=== PATIENT | male | born 1970 | race Caucasian/White ===

== ENCOUNTER 2017-10-14 10:33 | Outpatient (CLI) | payer MEDICARE ==
[~2017-10-14] VITALS: Ht 193 cm; Wt 159.1 kg
--- NOTE | ~2017-10-14 | OP ---
PATIENT NAME: RONDA ALFRED MEDICAL RECORD: [id number] :68 LOCATION:D.CAT ADMISSION DATE: SURGEON: DOMINIC PATEL MD DATE OF OPERATION: 10/14/2017 PREOPERATIVE DIAGNOSES: 1. End-of-life generator. 2. Hypertension. 3. Hyperlipidemia. POSTOPERATIVE DIAGNOSES: 1. End-of-life generator. 2. Hypertension. 3. Hyperlipidemia. PROCEDURE: Left subclavian vein pacemaker generator exchange. SURGEON: Dominic Patel MD REPORT OF PROCEDURE: The patient's left chest was prepped and draped in sterile fashion. A 20 mL of 1% lidocaine with epinephrine was infused into the surrounding tissues. A skin incision was made overlying the pacemaker. We then eviscerated the pacemaker through the wound and removed the suture, which was holding it in place. This was disconnected from the leads. The leads were checked and noted to be working appropriately. The new pacemaker was fixed to the leads and placed in a subcutaneous pouch. This was sutured into place with a 0 Ti-Cron. The subcutaneous tissues were irrigated out and then reapproximated with interrupted 3-0 Vicryls, and the skin was closed with running subcutaneous 5-0 Monocryl. COMPLICATIONS: None. CONDITION: Stable. ANESTHESIA: Local MAC. BLOOD LOSS: Minimal. TRANSINT:[id number] Voice Confirmation ID: [id number] DOCUMENT ID: [id number] DOMINIC PATEL MD at 0956 CC: CINTHIA KUMARI M.D. 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
--- NOTE | ~2017-10-14 | HEMODYNAMI ---
PATIENT:RONDA ALFRED MEDICAL RECORD: [id number] : 68 LOCATION:D.CAT ADMISSION DATE: 10/14/17 Generatedon:10/14/201714:29 Patient name: RONDA ALFRED Patient #: [id number] SSN: : 1970 Date of study: 10/14/2017 Page: Of Hemodynamic Procedure Report Patient Data Patient Demographics Procedure consent was obtained First Name: RONDA Gender: Male Last Name: AUBRIE : 1970 Middle Initial: L Age: 47 year(s) Patient #: [id number] Race: Additional ID: [id number] Contact details Address: [place] [address] State: [place] City: [place] Zip code: [address] Past Medical History Allergies: No known allergies Admission Admission Data Admission Date: 10/14/2017 Admission Time: 10:33 Procedure Procedure Types Cath Procedure Diagnostic Procedure PPM/ICD Permanent Pacer Generator Exg. Miscellaneous Procedures Moderate Sedation up to 15 minutes Procedure Description Procedure Date Procedure Date: 10/14/2017 Procedure Start Time: 14:06 Procedure Staff Name Function Issac Mike MD Performing Physician Capo Lindsey MD Assisting physician Edie Ernandez RT Scrub Anuel Ge RT Monitor Kofi Vela RN Nurse Procedure Data Cath Procedure Estimated blood loss: 10 ml Procedure Medications Medication Administration Route Dosage Oxygen NC 2 l/min Ancef (1Gm/50ml NS) I.V.P.B 1 g Ancef Irrigation Topical 1 g (1gm/500ml NS) Fentanyl I.V. 100 mcg Versed I.V. 2 mg Fentanyl I.V. 50 mcg Fentanyl I.V. 50 mcg Hemodynamics Rest Heart Rate: 81 (bpm) Snapshots Pre Cath Intra NCS Post Cath Vital Signs Time Heart Resp SPO2 etCO2 NIBP (mmHg) Rhythm Pain Sedation Rate (ipm) (%) (mmHg) Status Level (bpm) 13:43:14 81 22 96 0 127/75(91) NSR 0 (11) 10(A) , No pain 13:47:32 82 19 95 0 117/94(99) NSR 0 (11) 10(A) , No pain 13:51:50 83 17 94 0 138/82(98) NSR 0 (11) 10(A) , No pain 13:56:14 84 19 92 0 123/81(111) NSR 0 (11) 10(A) , No pain 14:00:34 86 19 92 0 146/79(105) NSR 0 (11) 10(A) , No pain 14:04:59 86 20 91 0 133/81(104) NSR 0 (11) 10(A) , No pain 14:09:21 135 19 92 0 139/86(102) NSR 0 (11) 10(A) , No pain 14:13:47 85 17 91 0 135/83(126) NSR 0 (11) 10(A) , No pain 14:18:12 86 16 90 0 129/83(107) NSR 0 (11) 10(A) , No pain 14:22:36 87 18 93 0 127/80(96) NSR 0 (11) 10(A) , No pain 14:24:47 86 21 93 0 135/82(103) NSR 0 (11) 10(A) , No pain Medications Time Medication Route Dose Verified Delivered Reason Notes Effectiv eness by by 13:38:[address] César Kirby Per l/min Dane RN physician 13:38:47 Ancef I.V.P.B [address] César Kirby Per (1Gm/50ml Dane RN physician NS) 13:39:00 Ancef Topical [address] César Kirby Per Irrigation Dane RN physician (1gm/500ml NS) 14:03:[address] César [place] [facility] [place] YA[place]EZ sedation 14:03:52 Versed I.V. [address] César Kirby for Dane RN sedation 14:07:03 Fentanyl I.V. 50 Capo Kirby [place] [facility] [place] Vela RN sedation 14:10:06 Fentanyl I.V. 50 Capo Kirby for [facility] [place] Vela RN sedation Procedure Log Time Note 13:38:37 Oxygen 2 l/min NC was administered by Kofi Vela RN; Per physician; 13:38:47 Ancef (1Gm/50ml NS) 1 g I.V.P.B was administered by Kofi Vela RN; Per physician; 13:39:00 Ancef Irrigation (1gm/500ml NS) 1 g Topical was administered by Kofi Vela RN; Per physician; 13:39:32 Diagnostic Cath Status : Elective 13:40:12 Kofi Vela RN sent for patient. Start room use. 13:40:14 Time tracking: Regular hours 13:40:19 Plan of Care:Hemodynamics will remain stable., Cardiac rhythm will remain stable., Comfort level will be maintained., Respiratory function will remain adequate., Patient/ family verbilizes understanding of procedure., Procedure tolerated without complication., Recovers from procedure without complications.. 13:41:26 Patient received from Pre/Post Procedure Room to CCL 3 Alert and oriented. Tansferred to table in Supine position. 13:41:32 Warm blankets applied, and brooke hugger turned on for patient comfort. 13:41:34 Correct patient and procedure confirmed by team. 13:41:37 Signed procedure consent form obtained from patient. 13:41:49 ECG and BP/O2 sat monitors applied to patient. 13:41:50 Vital chart was started 13:43:51 Baseline sample Acquired. 13:44:17 Rhythm: sinus rhythm 13:44:19 Full Disclosure recording started 13:44:46 H&P Date Dictated: 10/06/2018 Within 30 days and on chart., H&P Addendum completed by physician on day of procedure. (MUST COMPLETE FOR ALL OUTPATIENTS). 13:47:10 Pre-procedure instructions explained to patient. 13:47:12 Pre-op teaching completed and patient verbalized understanding. 13:47:19 Patient NPO since Breakfast. 13:47:28 Patient allergic to No known allergies 13:47:33 Is patient on blood thinner?No 13:47:36 Patient diabetic? No. 13:47:38 ----Pre-sedation anethsthesia assessment.---- 13:47:40 Previous problem with sedation/anesthesia? No ? 13:47:42 Snore? Yes 13:47:52 Sleep apnea? Yes 13:47:53 Deviated septum? No 13:47:54 Opens mouth fully? Yes 13:47:56 Sticks out tongue? Yes 13:47:59 Airway obstruction? No ? 13:48:04 Dentures? Yes OUT 13:48:25 IV patent on arrival in left antecubital with 0.9% NaCl at [facility]. 13:48:41 Left chest area was prepped with chlora-prep and draped in sterile fashion 13:48:43 Alarms reviewed by Zuleima Carpio 13:50:47 3.0 Vicryl Single Pack [id number] opened to sterile field. 13:50:48 5.0 Vicryl [id number] opened to sterile field. 13:50:48 2.0 Ticron Multipack ([id number]) opened to sterile field. 13:51:05 Cautery Pushbutton Pencil opened to sterile field. 13:51:57 Mepilex Dressing ([id number]) opened to sterile field. 13:52:32 [employer] MRI PPM Dual Generator [id number] opened to sterile field. 13:52:48 Grounding pad site Left thigh. 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 13:53:43 Physician paged 14:02:38 Physician arrived 14:03:28 --------ALL STOP TIME OUT------ 14:03:29 Final Timeout: patient, procedure, and site verified with staff and physician. All members of the team are in agreement. 14:03:34 Left chest site verified by team. 14:03:38 Physical assessment completed. ASA score P 2 - A patient with mild systemic disease as per Capo Lindsey MD. 14:03:43 Sedation plan: IV Moderate Sedation Medication:Versed, Fentanyl 14:03:45 Fentanyl 100 mcg I.V. was administered by Kofi Vela RN; for sedation; 14:03:52 Versed 2 mg I.V. was administered by Kofi Vela RN; for sedation; 14:04:53 Pre sharps counted by scrub and verified by RN: Sutures: 7; Sponges: 5; Stick needles: 0; Skin needles: 2; Blade: 1; Cautery: 1 14:04:56 Grounding pad site free from injury. 14:06:33 Lidocaine 1% w/epi was administered to left subclavicular area by Capo Lindsey MD . 14:07:03 Fentanyl 50 mcg I.V. was administered by Kofi Vela RN; for sedation; 14:08:02 Incision made to left subclavicular area. 14:10:06 Fentanyl 50 mcg I.V. was administered by Kofi Vela RN; for sedation; 14:10:40 Generator pocket made/opened. 14:12:40 Ventricular lead tested. 14:14:03 Atrial lead tested. 14:14:14 PPM Dual was removed.. 14:14:21 PPM Dual was attached to lead(s) and inserted into pocket. 14:16:05 Device pocket was irrigated with Ancef. 14:16:19 Generator was sutured in place with 2-0 ticron. 14:18:54 Subcutaneous closure was completed with 3-0 vicryl plus. 14:22:14 Skin closure was completed with 5-0 monocryl. 14:23:40 Procedure ended.(Physican Out) 14:24:03 Post sharps counted by scrub and verified by RN: Sutures: 7; Sponges: 5; Stick needles: 0; Skin needles: 2; Blade: 1; Cautery: 1 14:24:20 Lt Chest incision was dressed with Mepilex dressing. 14:24:34 Sharps counted by scrub and verified by R.N. 14:24:37 Insertion/operative site no bleeding no hematoma. 14:24:47 Post procedure rhythm: sinus rhythm 14:24:51 Estimated blood loss: 10 ml 14:24:53 Post procedure instruction explained to patient.Patient verbalizes understanding. 14:24:55 Patient needs reinforcement of post procedure teaching. 14:25:29 Procedure and supply charges have been captured, reviewed, submitted and are correct. 14:25:32 Vital chart was stopped 14:25:32 See physician's report for complete and final results. 14:25:35 Report given to Pre/Post Procedure Room. 14:25:57 Patient transfered to Pre/Post Procedure Room with Stretcher. 14:26:02 End room use (Document Last) Device Usage Item Name Manufacture Quantity Catalog Hospital Part Current Minimal Lot# / Number Charge Number Stock Stock Serial# Code 3.0 Vicryl Ethicon 1 [id number] 5 Single Pack [id number] 5.0 Vicryl Ethicon 1 [id number] [id number] 5 [id number] 2.0 Ticron Ethicon 4 [id number] 32541 903980 5 Multipack ([id number]) Cautery Microtek 1 [id number] 04653 [id number] 5 [facility] Pencil Mepilex Cardinal 1 [id number] 388136 [id number] [id number] 5 [facility] ([id number]) Medtronic Medtronic 1 [id number] 5 [employer] MRI PPM Dual Generator [id number] Signature Audit [place] Stage Time Signature Unsigned Intra-Procedure 10/14/2017 Anuel Ge 2:29:41 PM RT(R) (CV) Signatures Monitor : Anuel Ge RT Signature : Date : Time : [address] [address]
[2017-10-14] MEDS ORDERED: INVOKAMET 50-11 EACH PO (10:44)
[2017-10-14] MEDS ORDERED: LOPID600 MG PO (10:45)
[2017-10-14] MEDS ORDERED: ZETIA10 MG PO (10:45)
[2017-10-14] MEDS ORDERED: LYRICA75 MG PO (10:46)
[2017-10-14] MEDS ORDERED: TOPROL XL50 MG PO ×2 (10:46→10:47)
[2017-10-14] MEDS ORDERED: OMEPRAZOLE20 M1 PO (10:47)
[2017-10-14] MEDS ORDERED: ZESTRIL10 MG PO (10:47)
[2017-10-14] MEDS ORDERED: LANTUS INSULIN10 ML SC (10:48)
[2017-10-14] MEDS ORDERED: ANDROGEL5 GM TP (10:48)
[2017-10-14 10:52] VITALS: BP 137/88; Ht 193 cm; Wt 159.1 kg
[2017-10-14 11:04] LABS: HEMATOCRIT 53.4 % (42.0-54.0); HEMOGLOBIN 18.6 g/dL (13.5-17.5); MCH 30.9 pg (26.0-34.0); MCHC 34.8 g/dL (31.0-37.0); MCV 88.9 fL (80.0-100.0); MEAN PLATELET VOLUME 11.5 fL (7.4-10.4); RBC 6.01 10x6/uL (4.20-6.10); RDW 14.6 % (11.5-14.5)
[2017-10-14 11:23] LABS: APTT 27.7 SECONDS (22.8-39.4); INR 0.93 (0.85-1.17); PROTIME 12.1 SECONDS (11.6-15.0)
[2017-10-14 11:24] LABS: CALC OSMOLALITY 271 mosm/kg (275-300); CALCIUM 9.5 mg/dL (8.5-10.1); CARBON DIOXIDE 22.6 mmol/L (21.0-32.0); CHLORIDE - SERUM 95 mmol/L (98-107); CREATININE - SERUM 1.1 mg/dL (0.6-1.3); GLUCOSE 222 mg/dL (74-106); POTASSIUM - SERUM 4.7 mmol/L (3.5-5.1); SODIUM 131 mmol/L (136-145); UREA NITROGEN 19 mg/dL (7-18); eGFR NON AFRICAN AMERICAN 76 mL/min (90-120)
[2017-10-14] MEDS ORDERED: HYDROCODONE-APA1 TAB PO ×2 (14:26→14:47)
== END 2017-10-14 15:40 | disposition home or self-care (01) ==
LOC: D.CATH 10:33
PROVIDERS: Internal Medicine Cardiovascular Disease
DX: Z45.010 Encounter for checking and testing of cardiac pacemaker pulse generator [battery] (principal); I49.5 Sick sinus syndrome; Z01.812 Encounter for preprocedural laboratory examination; Z01.810 Encounter for preprocedural cardiovascular examination; I10 Essential (primary) hypertension; E11.9 Type 2 diabetes mellitus without complications; E78.5 Hyperlipidemia, unspecified; F17.200 Nicotine dependence, unspecified, uncomplicated

== ENCOUNTER → 2019-05-05 08:15 | Outpatient (CLI) | payer MEDICARE ==
[2017-10-14 10:52] VITALS: BMI 42.7
[~2019-05-05 08:15] MED LIST: ANDROGEL5 GM TP; HYDROCODONE-APA1 TAB PO; INVOKAMET 50-11 EACH PO; LANTUS INSULIN10 ML SC; LOPID600 MG PO; LYRICA75 MG PO; OMEPRAZOLE20 M1 PO; TOPROL XL50 MG PO; ZESTRIL10 MG PO; ZETIA10 MG PO
== END | disposition home or self-care (01) ==
LOC: D.HCCARDIO 08:15
PROVIDERS: ATTEND Internal Medicine Cardiovascular Disease
DX: I34.0 Nonrheumatic mitral (valve) insufficiency (principal); I10 Essential (primary) hypertension